=== PATIENT | female | born 1970 | race Two or more races ===

== ENCOUNTER 2024-10-12 07:21 | Outpatient (CLI) | payer BC ==
[2024-10-12 08:01] LABS: Alanine Aminotransferase 20 U/L (7-40); Alkaline Phosphatase 73 U/L (46-116); Anion Gap 10 (5-15); BUN/Creatinine Ratio 20.5 (10.0-20.0); Blood Urea Nitrogen 16 mg/dL (9-23); Calcium 10.2 mg/dL (8.7-10.4); Carbon Dioxide 24 mmol/L (20-31); Chloride 105 mmol/L (98-107); Potassium 4.8 mmol/L (3.5-5.1); Sodium 139 mmol/L (136-145)
[2024-10-12 08:02] LABS: Total Protein 7.4 g/dL (5.7-8.2)
[2024-10-12 08:03] LABS: Bilirubin, Total 0.4 mg/dL (0.2-1.0); HDL Cholesterol 51 mg/dL (40-59)
[2024-10-12 08:05] LABS: Albumin 4.8 g/dL (3.2-4.8); Cholesterol 275 mg/dL (< 200); Glucose 186 mg/dL (74-106); Triglycerides 255 mg/dL (< 150); Urine Protein, UAD Negative (Negative)
[2024-10-12 08:18] LABS: Hematocrit 40.0 % (36.0-46.0); Hemoglobin 13.7 g/dL (12.2-16.2); Mean Corpuscular Hemoglobin 30.1 pg (28.0-32.0); Mean Corpuscular Volume 88.2 fL (80.0-100.0); Nucleated Red Blood Cells % 0.1 %
[2024-10-12 08:21] LABS: Microalb/Creat Ratio, Urine 10.0
[2024-10-12 08:57] LABS: Free T4 (Free Thyroxine) 0.89 ng/dL (0.89-1.76)
== END 2024-10-12 17:00 | disposition home or self-care (01) ==
LOC: LAB 07:21
PROVIDERS: ATTEND Internal Medicine
DX: E11.9 Type 2 diabetes mellitus without complications (principal)
CPT/HCPCS: 36415; 80053; 80061; 81001; 82043; 82570; 82607; 83036; 84439; 84443; 85025; 85652